=== PATIENT | male | born 1995 | race Caucasian/White ===

== ENCOUNTER 2021-01-13 11:27 | Outpatient (CLI) | payer OTHER, SELFPAY ==
[2021-01-13 12:25] LABS: Alanine Aminotransferase 15 U/L (4-50); Albumin Level 4.6 g/dL (3.5-5.1); Alkaline Phosphatase 35 U/L (38-126); Aspartate Amino Transferase 23 U/L (17-59); Bilirubin,Total 0.6 mg/dL (0.2-1.3)
[2021-01-13 13:26] LABS: Free T4 Free Thyroxine 0.88 ng/mL (0.78-2.19)
[2021-01-16 07:37] LABS: DHEA-Sulfate 447 mcg/dL (85-690); LH 1.6 mIU/mL (1.5-9.3)
[2021-01-17 07:59] LABS: Testosterone Total 304 ng/dL (250-1100)
[2021-01-19 22:00] LABS: Estradiol, Ultrasensitive 15 pg/mL (< OR = 29)
== END 2021-01-13 11:28 | disposition home or self-care (01) ==
PROVIDERS: Visit Provider Surgery Plastic and Reconstructive Surgery
DX: N62 Hypertrophy of breast (principal)
CPT/HCPCS: 36415; 80076; 82627; 82670; 83002; 84403; 84439; 84443

== ENCOUNTER → 2021-02-21 00:07 | Outpatient (CLI) | payer SELFPAY ==
[2021-02-21 19:28] LABS: SARS-CoV-2 RNA PCR Negative
== END ==
PROVIDERS: Visit Provider Surgery Plastic and Reconstructive Surgery
DX: Z01.812 Encounter for preprocedural laboratory examination (principal); Z20.822 Contact with and (suspected) exposure to COVID-19
CPT/HCPCS: C9803; U0003; U0005

== ENCOUNTER 2021-02-24 05:53 | Day surgery (SDC) | payer OTHER, SELFPAY ==
[2021-02-14 09:33] VITALS: BMI 30.4
[2021-02-24 06:15] VITALS: BP 130/80; PULSE 84; RESP 20; TEMP 36.4; O2SAT 100
[2021-02-24] MEDS: LACTATED RINGERS 1,000 ML 30 ML IV CONT ×2 (06:40→09:15)
--- NOTE | 2021-02-24 06:52 | WPDHPUPDATE1 ---
History and Physical Update Update Date/Time: 02/24/21 06:52 History and Physical has been reviewed, including an updated exam of the patient. There are NO changes in the patient's condition. Risks, benefits, and alternatives have been discussed and questions answered. Patient agrees to proceed with procedure.
--- NOTE | 2021-02-24 06:56 | WPDANESEPPF ---
Anes - Initial Pre Proc Eval Procedure: Operation Date: 02/24/21 07:30 Proposed Procedures p Excision Gynecomastia with Liposuction - Varinder Polo MD Date/Time: 02/24/21 06:56 Surgeon: Varinder Polo MD Pre Op Diagnosis: Gynecomastia Patient Data Age: 25 Gender: M Height: 5 ft 7.5 in Weight: 93.7 kg Allergies Allergy/AdvReac Type Severity Reaction Status Date / Time No Known Allergies Allergy Verified 02/24/21 06:37 Home Medications Medication Instructions Recorded Confirmed Type docusate sodium 100 mg capsule 100 mg PO DAILY #14 cap 02/07/21 02/14/21 Rx ondansetron HCl 4 mg tablet 4 mg PO Q8H #28 tablet 02/07/21 02/14/21 Rx hydrocodone 5 mg-acetaminophen 325 1 tablet PO Q6H PRN #15 tablet 02/14/21 02/14/21 Rx mg tablet Patient hx anesthesia problems: none Family hx anesthesia problems: none PMFSH Past Medical History Medical History (Updated 02/24/21 @ 06:56 by Meño Dunlap MD) Overweight Surgical History Surgical History (Updated 02/24/21 @ 06:59 by Meño Dunlap MD) [place] teeth extracted Social History Social History Smoking status: Never smoker Tobacco type: smokeless tobacco Alcohol intake: current Drinks per week: 10 Substance use: never Living arrangements: alone Gender identity (if verbalized by the patient): Male Spiritual care concerns: No Anes - Eval Final PreProcedure Day of Procedure 02/24/21 06:56 Patient weight: overweight Heart: regular rate and rhythm Lungs: clear to auscultation Airway: Mallampati scale class II Neurological: alert and oriented Last oral intake: >/= 8 hours ASA classification: II Emergent: no Anesthetic plan: proceed Anesthesia type and monitoring: general LMA and standard monitoring Informed Consent: The patient's anesthetic plan and its attendant risks and benefits were discussed with the patient/family/POA. Questions were solicited and answers provided to the satisfaction of the patient/family/POA.
[2021-02-24] MEDS: SCOPOLAMINE 1.5 MG PATCH TRANSDERM (07:05)
--- NOTE | 2021-02-24 07:10 | PM.PROC ---
Procedure Note - Detailed Date of procedure: 02/24/21 Pre-op diagnosis: Gynecomastia Post-op diagnosis: same Procedure performed: Mastectomy for gynecomastia Description of procedure: Patient was marked in the preoperative holding area with his verification. Risks, benefits, alternatives were discussed in extensive detail. He understands this could lead to excess skin. He would proceed with second-stage revision his expense if necessary.Wanted him to be very realistic about the risks involved as as well as expectations. Answered all his questions to his satisfaction. He expresses an understanding. Consent obtained. He was taken to the operating room placed supine on the operating room table. Anesthesia was provided by anesthesiology and prepped and draped in a standard sterile fashion. Surgical time-out was taken. Stab incisions were made and I tumesced with a tumescent solution. Once adequate time for hemostasis. A 15 blade used to make an incision along the inferior areola. Identified the breast tissue and this was completely removed. Verified strict hemostasis. I then proceeded with Modification ofS.A.F.E. liposuction through stab incisions inferiorly will incision. this was completed based on preoperative markings intraoperative observations in rolling pinch test. Once I was happy contour stab incisions with a 4-0 nylon. Our. The inferior areolar incision with 2-0 Vicryl followed by 3-0 Monocryl in a running subcuticular 4-0 Monocryl and tissue glue. Dressings were placed. He was woken and taken to the PACU without difficulty. All instrument sponge counts were correct at the end of the case. Anesthesia: GLMA Surgeon: Varinder Polo MD Estimated blood loss (mL): 20 Drains: No Packing: No Pathology: none sent Complications: No immediate complications Condition: stable Disposition: PACU Findings: Lipoaspirate - 1,000 cc
[2021-02-24] MEDS: ceFAZolin 2 GM/D5W 50 ML 2 GM/50 ML BAG IVPB (07:15)
[2021-02-24 09:05] VITALS: BP 98/54; PULSE 83; RESP 20; TEMP 36.6; O2SAT 100
[2021-02-24 09:20] VITALS: BP 107/57; PULSE 76; RESP 13; O2SAT 100
--- NOTE | 2021-02-24 09:28 | WPDANESPN ---
Anes - Prog Note Post-Op Date/Time: 02/24/21 09:28 Cardiovascular status: normal Airway patency: baseline Post-Op hydration status: normal Vital Signs: Last Vital Signs Temp 36.6 C 02/24/21 09:05 Pulse 76 02/24/21 09:20 Resp 13 02/24/21 09:20 BP 107/57 L 02/24/21 09:20 Pulse Ox 100 02/24/21 09:20 Pain Score (VAS): 2/10 Post-procedural complaints: none Patient Feedback: Patient satisfied, no nausea, no pain only mild soarness. Other Findings: Pt. stable for discharge per criteria
[2021-02-24 09:35] VITALS: BP 107/51; PULSE 93; RESP 16; O2SAT 98
[2021-02-24 10:05] VITALS: BP 105/50; PULSE 90; RESP 17; O2SAT 100
[2021-02-24 10:25] VITALS: BP 110/50; PULSE 92; RESP 18; O2SAT 98
== END 2021-02-24 10:45 | disposition home or self-care (01) ==
PROVIDERS: Visit Provider Surgery Plastic and Reconstructive Surgery
PROC: (CPT 19300; principal; 2021-02-24 07:30)
DX: N62 Hypertrophy of breast (principal)
CPT/HCPCS: 19300